=== PATIENT | male | born 1990 ===

== ENCOUNTER 2018-07-16 09:55 | Emergency (ER) | payer OTHER ==
[2018-07-16 09:59] VITALS: BMI 30.9
[2018-07-16 10:00] VITALS: BP 122/78; RESP 17; TEMP 98.5; O2SAT 98
--- NOTE | 2018-07-16 11:04 | ED PDOC ---
HPI: General Adult Time Seen by Provider: 07/16/18 10:16 Chief Complaint (Nursing): Medical Clearance Chief Complaint (Provider): difficulty sleeping History Per: Patient History/Exam Limitations: language barrier (Residential Real Estate Assistant #[id number]) Onset/Duration Of Symptoms: Days (x3) Current Symptoms Are (Timing): Still Present Additional Complaint(s): Colin Campos is a 27 year old male, with a past medical history of anxiety, depression and schizophrenia, who presents to the emergency department complaining of being unable to sleep for more than x2 hours for the last x3 nights. Patient takes Risperidone, Benztropine, Alprazolam and without any help. Patient works at a grocery store doing stocking and states he is worried of working with lack of sleep. He denies any hallucinations, depression or other medical complaints. PMD: None provided. Past Medical History Reviewed: Historical Data, Nursing Documentation, Vital Signs Vital Signs: Last Vital Signs Temp 98.5 F 07/16/18 09:59 Pulse 103 H 07/16/18 09:59 Resp 17 07/16/18 09:59 BP 122/78 07/16/18 09:59 Pulse Ox 98 07/16/18 09:59 - Medical History PMH: Anxiety, Bipolar Disorder, Depression, Schizophrenia Denies: Diabetes, Hepatitis, HIV, HTN, Seizures, Sexually Transmitted Disease - Surgical History Other surgeries: HEAD CYST REMOVAL - Family History Family History: States: Unknown Family Hx - Social History Current smoker - smoking cessation education provided: No Alcohol: None Drugs: Denies - Immunization History Hx Tetanus Toxoid Vaccination: No Hx Influenza Vaccination: No Hx Pneumococcal Vaccination: No - Home Medications Home Medications: Ambulatory Orders Medication Instructions Recorded ALPRAZolam [Xanax] 0.25 mg PO Q6 PRN #15 tab 07/12/18 Benztropine [Cogentin] 07/12/18 DiphenhydrAMINE [Benadryl] 25 mg PO Q6 PRN #30 cap 07/12/18 risperiDONE 07/12/18 - Allergies Allergies/Adverse Reactions: Allergies Allergy/AdvReac Type Severity Reaction Status Date / Time No Known Allergies Allergy Unverified 07/16/18 10:25 Review of Systems ROS Statement: Except As Marked, All Systems Reviewed And Found Negative Psych: Negative for: Depression, Other (hallucinations) Physical Exam - Reviewed Nursing Documentation Reviewed: Yes Vital Signs Reviewed: Yes - Physical Exam Appears: Positive for: No Acute Distress Head Exam: Positive for: ATRAUMATIC, NORMAL INSPECTION, NORMOCEPHALIC Skin: Positive for: Normal Color, Warm, Dry Eye Exam: Positive for: Normal appearance, EOMI, PERRL Neck: Positive for: Normal, Painless ROM Cardiovascular/Chest: Positive for: Regular Rate, Rhythm. Negative for: Murmur Respiratory: Positive for: Normal Breath Sounds. Negative for: Respiratory Distress Gastrointestinal/Abdominal: Positive for: Normal Exam, Soft. Negative for: Tenderness Back: Positive for: Normal Inspection Extremity: Positive for: Normal ROM (upper and lower extremities). Negative for: Deformity Neurologic/Psych: Positive for: Alert, Oriented. Negative for: Motor/Sensory Deficits - ECG O2 Sat by Pulse Oximetry: 98 (RA) Pulse Ox Interpretation: Normal Medical Decision Making Medical Decision Making: Time: 10:16 Initial Impression: Patient has scheduled appointment with psychiatrist in July 24. Will call today to get an earlier appointment for possible med adjustment and addition of sleeping aid. Initial Plan: 10:40 Vitals are within normal limits. Patient is medically stable for discharge home. Patient advised to take OTC sleep aid and follow up with scheduled appointment with psychiatrist. Scribe Attestation: Documented by Sanket Corbin, acting as a scribe for Tabitha Phan MD Provider Scribe Attestation: All medical record entries made by the Scribe were at my direction and personally dictated by me. I have reviewed the chart and agree that the record accurately reflects my personal performance of the history, physical exam, medical decision making, and the department course for this patient. I have also personally directed, reviewed, and agree with the discharge instructions and disposition. Disposition - Clinical Impression Clinical Impression: Anxiety, Insomnia - Disposition Disposition: Routine/Home Disposition Time: 10:40 Condition: STABLE Additional Instructions: Follow up with psychiatrist/mental health clinic today or tomorrow. Do not drive or perform dangerous activities if you have been unable to sleep as drowsiness will cause you to be impaired. Instructions: Anxiety, Adult (DC), Insomnia (DC), General (DC), Tips for Getting Better Sleep Forms: [employer] (Uruguayan), [employer] (Khmer) Print Language: ERITREAN
[2018-07-16 11:31] VITALS: PULSE 94
== END 2018-07-16 11:31 | disposition home or self-care (01) ==
LOC: H.ER 09:55
DX: F41.9 Anxiety disorder, unspecified (principal); G47.00 Insomnia, unspecified; F20.9 Schizophrenia, unspecified; F31.9 Bipolar disorder, unspecified

== ENCOUNTER 2018-07-21 00:24 | Inpatient (IN) | payer OTHER ==
[2018-07-21 00:52] VITALS: BMI 33.9
--- NOTE | 2018-07-21 02:28 | ED PDOC ---
HPI: Psych/Substance Abuse Time Seen by Provider: 07/21/18 01:15 Chief Complaint (Nursing): Anxiety Chief Complaint (Provider): Anxiety History Per: Busperson (Carlito #[id number]) History/Exam Limitations: language barrier (greek) Onset/Duration Of Symptoms: Days (x5) Current Symptoms Are (Timing): Still Present Suicide/Self Injury Attempted (Context): None Additional Complaint(s): 27 year old male with pmHx of anxiety, bipolar disorder, and schizophrenia, arrives to the emergency department for an evaluation of dizziness and difficulty sleeping due to increased anxiety for the past 5 days. Patient has been taking risperidone and benztroprine as prescribed, however, does not feel any alleviation. Otherwise, he denies fever, chills, vomiting, suicidal or homicidal ideation. PCP: Dr.Tania Faustino Love Past Medical History Reviewed: Historical Data, Nursing Documentation, Vital Signs Vital Signs: Last Vital Signs Temp 98.6 F 07/21/18 00:52 Pulse 102 H 07/21/18 00:52 Resp 18 07/21/18 00:52 BP 126/85 07/21/18 00:52 Pulse Ox 97 07/21/18 00:52 - Medical History PMH: Anxiety, Bipolar Disorder, Depression, Schizophrenia Denies: Diabetes, Hepatitis, HIV, HTN, Seizures, Sexually Transmitted Disease - Family History Family History: States: Unknown Family Hx - Immunization History Hx Tetanus Toxoid Vaccination: No Hx Influenza Vaccination: No Hx Pneumococcal Vaccination: No - Home Medications Home Medications: Ambulatory Orders Medication Instructions Recorded Benztropine Mesylate 1 mg PO HS 07/21/18 Patient Own Control 25 mg PO Q6 07/21/18 Risperidone [Risperdal] 2 mg PO HS 07/21/18 - Allergies Allergies/Adverse Reactions: Allergies Allergy/AdvReac Type Severity Reaction Status Date / Time No Known Allergies Allergy Unverified 07/21/18 00:51 Review of Systems ROS Statement: Except As Marked, All Systems Reviewed And Found Negative Constitutional: Negative for: Fever, Chills Gastrointestinal: Negative for: Vomiting Neurological: Positive for: Dizziness Psych: Positive for: Anxiety. Negative for: Suicidal ideation (or homicidal ideation) Physical Exam - Reviewed Nursing Documentation Reviewed: Yes Vital Signs Reviewed: Yes - Physical Exam Appears: Positive for: Non-toxic, No Acute Distress Head Exam: Positive for: ATRAUMATIC, NORMAL INSPECTION, NORMOCEPHALIC Skin: Positive for: Normal Color Eye Exam: Positive for: Normal appearance, EOMI, PERRL Cardiovascular/Chest: Positive for: Regular Rate, Rhythm, Chest Non Tender. Negative for: Murmur Respiratory: Positive for: Normal Breath Sounds. Negative for: Wheezing, Respiratory Distress Neurologic/Psych: Positive for: Alert, Oriented. Negative for: Motor/Sensory Deficits, Aphasia - Laboratory Results Result Diagrams: 07/21/18 02:38 07/21/18 02:38 - ECG O2 Sat by Pulse Oximetry: 97 (RA) Pulse Ox Interpretation: Normal Medical Decision Making Medical Decision Making: Time: 2009 Initial Plan: * Labs * Crisis evaluation Time: 242 --Evaluated by abrasive worker who additionally reviewed past charts. Patient's presentation appears similar to previous psych break at [facility]. Will require admission as per Dr. Morel. Time: 329 --Patient is medically optimized for admission. ------- Scribe Attestation: Documented by Lanetet Castillo, acting as a scribe for Tabitha Phan MD. Provider Scribe Attestation: All medical record entries made by the Scribe were at my direction and personally dictated by me. I have reviewed the chart and agree that the record accurately reflects my personal performance of the history, physical exam, medical decision making, and the department course for this patient. I have also personally directed, reviewed, and agree with the discharge instructions and disposition. Disposition - Clinical Impression Clinical Impression: Schizoaffective disorder - Disposition Disposition Time: 03:30 Condition: STABLE
[2018-07-21 03:11] LABS: BASO % 0.4 % (0.0-2.0); EOS # 0.1 K/uL (0.0-0.7); EOS % 1.4 % (0.0-4.0); LYMPH % 26.8 % (20.0-40.0); MEAN CELL VOLUME 88.3 fl (80.0-94.0); MEAN CORPUSCULAR HEMOGLOBIN 30.3 pg (27.0-31.0); MEAN CORPUSCULAR HGB CONC 34.3 g/dL (33.0-37.0); MEAN PLATELET VOLUME 9.1 fl (7.2-11.7); MONO # 0.5 K/uL (0.0-0.8); MONO % 6.2 % (0.0-10.0); NEUT # 4.9 K/uL (1.8-7.0); NEUT % 65.2 % (50.0-75.0); NRBC % 0.1 % (0.0-0.0); RBC 4.96 Mil/uL (4.40-5.90); RED CELL DISTRIBUTION WIDTH 12.7 % (11.5-14.5); WHITE BLOOD COUNT 7.5 K/uL (4.8-10.8)
[2018-07-21 03:19] LABS: BLOOD UREA NITROGEN 17 mg/dl (9-20); CALCIUM 9.2 mg/dL (8.4-10.2); GFR NON-AFRICAN AMERICAN > 60
[2018-07-21] MEDS ORDERED: DiphenhydrAMINE 50 mg/ml Inj IM PRN (05:14)
[2018-07-21] MEDS ORDERED: Magnesium Hydroxide Susp 30 ml UD PO PRN (05:14)
[2018-07-21] MEDS ORDERED: Alum-Mag Hydrox-Simethicone Susp (30 mL) PO PRN (05:14)
--- NOTE | 2018-07-21 05:25 | PCM.BM ---
<Ethan Reeves - Last Filed: 07/21/18 05:24> Treatment Plan Problems - Problems identified on initial assessmt Anxiety Date Initiated: 07/21/18 Time Initiated: 05:24 Assessment reference: NA Status: Active Altered Sleep Patterns Date Initiated: 07/21/18 Time Initiated: 05:24 Assessment reference: NA Status: Active Panic Attacks Date Initiated: 07/21/18 Time Initiated: 05:24 Assessment reference: NA Status: Active Treatment assets and liabiliti Patient Assests: cooperative, ADL independent, physically healthy, good support system, negotiates basic needs, cognitively intact Patient Liabilities: financial problems, other (Recent loss) - Milieu Protocol Maintain good personal hygiene: every shift Encourage regular showers, every shift Remind patient to perform daily oral care, every shift Assist patient to perform ADL's Maintain personal safety: daily Educate patient to report safety concerns to staff, daily Monitor environment for contraband/sharps Medication safety: Monitor for expected outcome, potential side effects: daily, Assess barriers to learning: daily, Assess readiness for medication education: daily <Sumit Ying - Last Filed: 07/22/18 18:48> Family Contact Family involvement: Family/SO is involved Family contact: Patient agrees to contact - Goals for Treatment Patient goals for treatment: Pt reported that he would like to be placed on medications to help him sleep. Discharge/Continuing Care - Education Needs Education Needs: Patient Medication, Patient Diagnosis/Disease Process, Patient Coping Skills, Patient Community resources, Patient Aftercare Safety Plan - Discharge Discharge Criteria: Tolerates medication w/o severe side effects, Free of paranoid thoughts, Free of agitation, Normal sleep pattern, Ability to care for self, Reduction of target symptoms Discharge to:: Home, With Family - Treatment Team Participation Was Patient/Family/SO present at Treatment Team Meeting: Yes <Kelly Marinelli - Last Filed: 07/23/18 11:25> - Diagnosis (1) Schizoaffective disorder Status: Acute Interventions: Medication management, Individual and group therapy, Psychoeducation 07/23/18 11:25 <Apoorva Jerome - Last Filed: 07/23/18 15:11> Discharge/Continuing Care - Treatment Team Participation Patient/Family/SO Statement: 07/23/18 15:11 Patient was invited to tx team this morning to discuss progress on 3NS and tx goals. Pt. presented as suspicious on approach and guarded when discussing psychiatric hx/sxs leading to admission. Pt. reported hx of AH and paranoia (last experienced 5 months ago). Affect incongruent to mood (smiling inappropriately). Pt. reported vague sxs of depression and anxiety and identified poor sleep as primary stressors contributing to acute onset of sxs. Pt. presented with c/o sleep disturbances (3 hrs/night for past 6 days). Pt. perseverating on possibility that lack of sleep will lead to his and required significant reassurance. Pt. denied AH/VH. Pt. denied SI/HI and was able to contract for safety. Focus/Insight limited. Pt superficially motivated for tx. Pt requested increase in medications. Psychoeducation regarding recommended medication regimen provided. Pt receptive to feedback.
[2018-07-21 06:20] LABS: BENZODIAZEPINES, UR NEGATIVE (NEGATIVE)
[2018-07-21 06:25] LABS: BARBITURATES, UR NEGATIVE (NEGATIVE); OPIATES, UR NEGATIVE (NEGATIVE); PHENCYCLIDINE, UR NEGATIVE (NEGATIVE)
--- NOTE | 2018-07-21 10:28 | RAD ---
Date of service: 07/21/2018 HISTORY: possible admission COMPARISON: No prior. FINDINGS: LUNGS: No active pulmonary disease. PLEURA: No significant pleural effusion identified, no pneumothorax apparent. CARDIOVASCULAR: No aortic atherosclerotic calcification present. Normal cardiac size. No pulmonary vascular congestion. OSSEOUS STRUCTURES: No significant abnormalities. VISUALIZED UPPER ABDOMEN: Normal. OTHER FINDINGS: Partially imaged right-sided ventriculoperitoneal shunt catheter. IMPRESSION: No active disease.
--- NOTE | 2018-07-21 13:00 | PCM.PSYCH ---
Initial Psychiatric Evaluation - Initial Psychiatric Evaluation Chief Complaint (in patient's own words): I could not sleep History of Present Illness and Precipitating Events: pt is 27 ys old male with previous diagnosis of psychotic disorder, presented to ER due to decreased sleep, and increased anxiety pt has been hospitalized at [facility] in 2018, for disorganized behaviour diaagnosed with brief psychotic episode, placed on risperidone , pt has not been lately compliant with medications or follow up reported that for past few weeks had difficulty sleeping with early insomnia, feeling anxious all the time, pt presenting with concrete thought process and at times affect is inappropriate to thought content, stating that 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, removed 7 years ago and he also checked into the hospital to get CT scan to check if he is alright pt denied command hallucinations denied any current suicidal or homicidal ideation Current Medications: Active Medications Generic Name Dose Route Start Last Admin Trade Name Freq PRN Reason Stop Dose Admin Acetaminophen 650 mg 07/21/18 05:14 Tylenol 325mg Tab PO Q4 PRN Pain, moderate (4-7) Al Hydrox/Mg Hydrox/Simethicone 30 ml 07/21/18 05:14 Maalox Plus 30 Ml PO Q4 PRN Dyspepsia Benztropine Mesylate 1 mg 07/21/18 22:00 Cogentin PO HS IVETTE Diphenhydramine HCl 50 mg 07/21/18 05:14 Benadryl IM Q6 PRN Extrapyramidal S/S Unable PO Diphenhydramine HCl 50 mg 07/21/18 05:14 Benadryl PO Q6 PRN Extrapyramidal Symptoms Diphenhydramine HCl 50 mg 07/21/18 05:26 Benadryl PO HS PRN Sleep Haloperidol 5 mg 07/21/18 05:14 Haldol PO Q4 PRN Agitation Haloperidol Lactate 5 mg 07/21/18 05:14 Haldol IM Q4 PRN Agitation, Unable to Take PO Lorazepam 2 mg 07/21/18 05:14 Ativan IM Q4 PRN Anxiety/Agitation,Unable PO Lorazepam 1 mg 07/21/18 05:14 Ativan PO Q8 PRN Anxiety/Agitation Magnesium Hydroxide 30 ml 07/21/18 05:14 Milk Of Magnesia PO HS PRN Constipation Risperidone 1 mg 07/21/18 22:00 Risperdal Tab PO HS IVETTE Trazodone HCl 50 mg 07/21/18 22:00 Desyrel PO HS [facility] Past Psychiatric History - Past Psychiatric History History of ETOH/Drug Use: non reported History of Family Illness: hx of bipolar Pertinent Medical Hx (Current Medical&Sleep Prob, Allergies): Allergies Allergy/AdvReac Type Severity Reaction Status Date / Time No Known Allergies Allergy Unverified 07/21/18 00:51 Benztropine Mesylate 1 mg PO HS 07/21/18 Patient Own Control 25 mg PO Q6 07/21/18 Risperidone [Risperdal] 2 mg PO HS 07/21/18 Mental Status Examination - Personal Presentation Personal Presentation: Looks stated age - Affect Affect: Constricted, Blunted - Motor Activity Motor Activity: Psychomotor Agitation - Reliability in Providing Information Reliability in Providing Information: Poor, due to alteration in thoughts - Speech Speech: Tangential - Mood Mood: Depressed, Anxious - Formal Thought Process Formal Thought Process: Paranoia, Circumstantial Additional comments: thought blocking - Obsessions/Compulsions Obsessions: No Compulsions: No - Cognitive Functions Orientation: Person, Place Sensorium: Alert Attention/Concentration: Easily distracted Abstract Thinking: [place] Judgement: Imparied, as evidence by: Lack of insight into illness - Risk Risk: Diminished functioning - Strength & Assets Inventory Strength & Assets Inventory: Life experience - Limitations Additional comments: poor compliance DSM 5 DX - DSM 5 DSM 5 Diagnosis: psychotic disorder rule out depression with psychosis rule out schizophrenia disorganized type - Recommended/Plan of Treatment Treatment Recommendations and Plan of Treatment: pt will be started on risperidone 1mg qhs , / increase gradually cogentin 1mg qhs trazodone 50mg qhs collateral information to be obtained from family
--- NOTE | 2018-07-21 14:44 | CP.PCM.CON ---
History of Present Illness - History of Present Illness History of Present Illness: Reason for Consult: Per hospital protocol HPI: 27 year old male PMH psychotic disorder admitted for disorganized behavior. No other complaints, HD stable, NAD. ROS: Per HPI, all other systems reviewed and neg Past Patient History - Past Social History Smoking Status: Never Smoked - CARDIAC Hx Hypertension: No - PULMONARY Hx Tuberculosis: No - NEUROLOGICAL Hx Seizures: No - HEMATOLOGICAL/ONCOLOGICAL Hx Human Immunodeficiency Virus (HIV): No - GASTROINTESTINAL Hx Gastritis: Yes - GENITOURINARY/GYNECOLOGICAL Hx Sexually Transmitted Disorders: No - PSYCHIATRIC Hx Anxiety: Yes Hx Bipolar Disorder: Yes Hx Depression: Yes Hx Substance Use: No - SURGICAL HISTORY Hx Surgeries: Yes Other/Comment: head cyst surgery - ANESTHESIA Hx Anesthesia: Yes Hx Anesthesia Reactions: No Meds Allergies/Adverse Reactions: Allergies Allergy/AdvReac Type Severity Reaction Status Date / Time No Known Allergies Allergy Unverified 07/21/18 00:51 - Medications Medications: Current Medications Acetaminophen (Tylenol 325mg Tab) 650 mg PO Q4 PRN PRN Reason: Pain, moderate (4-7) Al Hydrox/Mg Hydrox/Simethicone (Maalox Plus 30 Ml) 30 ml PO Q4 PRN PRN Reason: Dyspepsia Benztropine Mesylate (Cogentin) 1 mg PO HS IVETTE Diphenhydramine HCl (Benadryl) 50 mg IM Q6 PRN PRN Reason: Extrapyramidal S/S Unable PO Diphenhydramine HCl (Benadryl) 50 mg PO Q6 PRN PRN Reason: Extrapyramidal Symptoms Diphenhydramine HCl (Benadryl) 50 mg PO HS PRN PRN Reason: Sleep Haloperidol (Haldol) 5 mg PO Q4 PRN PRN Reason: Agitation Haloperidol Lactate (Haldol) 5 mg IM Q4 PRN PRN Reason: Agitation, Unable to Take PO Lorazepam (Ativan) 2 mg IM Q4 PRN PRN Reason: Anxiety/Agitation,Unable PO Lorazepam (Ativan) 1 mg PO Q8 PRN PRN Reason: Anxiety/Agitation Last Admin: 07/21/18 13:41 Dose: 1 mg Magnesium Hydroxide (Milk Of Magnesia) 30 ml PO HS PRN PRN Reason: Constipation Risperidone (Risperdal Tab) 1 mg PO HS IVETTE Trazodone HCl (Desyrel) 50 mg PO HS IVETTE Physical Exam - Constitutional Additional comments: GEN: WDWN, alert, cooperative HEENT: NCAT, PERRL, EOMI HEART: RRR, +S1S2, NO MRG LUNG: CTAB, NO WRR ABD: soft, NT, ND, No HSM, No masses EXT: normal pedal pulses NEURO: awake, alert SKIN: warm, dry PSYCH: normal mood, normal affect Results - Vital Signs Recent Vital Signs: Last Vital Signs Temp 98.1 F 07/21/18 06:00 Pulse 85 07/21/18 06:00 Resp 18 07/21/18 06:00 BP 129/78 07/21/18 06:00 Pulse Ox 99 07/21/18 04:40 - Labs Result Diagrams: 07/21/18 02:38 07/21/18 02:38 Labs: Laboratory Results - last 24 hr 07/21/18 07/21/18 07/21/18 02:38 02:38 04:48 WBC 7.5 RBC 4.96 Hgb 15.0 Hct 43.7 MCV 88.3 MCH 30.3 MCHC 34.3 RDW 12.7 Plt Count 259 MPV 9.1 Neut % (Auto) 65.2 Lymph % (Auto) 26.8 [place] % (Auto) 6.2 Eos % (Auto) 1.4 Baso % (Auto) 0.4 Neut # (Auto) 4.9 Lymph # (Auto) 2.0 [place] # (Auto) 0.5 Eos # (Auto) 0.1 Baso # (Auto) 0.0 Sodium 140 Potassium 3.4 L Chloride 105 Carbon Dioxide 23 Anion Gap 15 BUN 17 Creatinine 0.8 Est GFR ( Amer) > 60 Est GFR (Non-Af Amer) > 60 Random Glucose 118 H Calcium 9.2 Triglycerides Cholesterol LDL Cholesterol Direct HDL Cholesterol Thyroxine (T4) TSH 3rd Generation Urine Opiates Screen Negative Urine Methadone Screen Negative Ur Barbiturates Screen Negative Ur Phencyclidine Scrn Negative Ur Amphetamines Screen Negative U Benzodiazepines Scrn Negative U Oth Cocaine Metabols Negative U Cannabinoids Screen Negative 07/21/18 06:18 WBC RBC Hgb Hct MCV MCH MCHC RDW Plt Count MPV Neut % (Auto) Lymph % (Auto) [place] % (Auto) Eos % (Auto) Baso % (Auto) Neut # (Auto) Lymph # (Auto) [place] # (Auto) Eos # (Auto) Baso # (Auto) Sodium Potassium Chloride Carbon Dioxide Anion Gap BUN Creatinine Est GFR ( Amer) Est GFR (Non-Af Amer) Random Glucose Calcium Triglycerides 152 H Cholesterol 160 LDL Cholesterol Direct 104 HDL Cholesterol 34 Thyroxine (T4) 9.72 TSH 3rd Generation 3.12 Urine Opiates Screen Urine Methadone Screen Ur Barbiturates Screen Ur Phencyclidine Scrn Ur Amphetamines Screen U Benzodiazepines Scrn U Oth Cocaine Metabols U Cannabinoids Screen Assessment & Plan - Assessment and Plan (Free Text) Plan: 27 year old male PMH psychotic disorder admitted for disorganized behavior. No other complaints, HD stable, NAD. Psychotic Disorder management per psych
--- NOTE | 2018-07-22 10:06 | CARD ---
APPROVED REPORT Date of service: 07/21/2018 EKG Measurement Heart [id number] <Conclusion> Normal sinus rhythm Early reporlarization pattern; a normal variant Normal ECG
--- NOTE | 2018-07-22 10:09 | PCM.PYCHPN ---
Psychiatric Progress Note - Psychiatric Progress Note Patient seen today, length of contact: pt evaluated discussed with team chart reviewed Patient Chief Complaint: I still have hard time sleeping Problems Identified/Issues Discussed: pt on evaluation. presenting with concrete thought process, blunted affect, reported poor sleep, yet observed by staff to have eight hours of sleep, pt at times presenting with thought blocking, appears internally preoccupied , he denied command hallucinations, denied suicidal or homicidal ideation, has limited insight into illness DSM 5 Symptoms Update: schizoaffective disorder Medication Change: Yes (increase risperidone and trazodone ) Medical Record Reviewed: Yes Mental Status Examination - Cognitive Function Orientation: Person, Place Attention: WNL Concentration: Poor Fund of Knowledge: Poor Decription of patient's judgement and insights: poor insight and judgment - Mood Mood: Anxious - Affect Affect: Blunted - Speech Speech: Soft - Formal Thought Process Formal Thought Process: Paranoia, Circumstantial Psychotic Thoughts and Behaviors: pt appears internally preoccupied - Suicidal Ideation Suicidal Ideation: No - Homicidal Ideation Homicidal Ideation: No Goal/Treatment Plan - Goal/Treatment Plan Need for Continued Stay: Severe depression anxiety, Discharge may exacerbated symptoms Progress Toward Problem(s) and Goals/Treatment Plan: increase risperidone 2mg qhs , / cogentin 1mg qhs trazodone 100mg qhs collateral information to be obtained from family
--- NOTE | 2018-07-23 11:33 | PCM.PYCHPN ---
Psychiatric Progress Note - Psychiatric Progress Note Patient seen today, length of contact: Pt evaluated, case discussed w/ team, chart reviewed Patient Chief Complaint: "I can't sleep." Problems Identified/Issues Discussed: Patient continues to report sleep disturbances and is fearful that he will from not sleeping. He is guarded w/ inappropriately happy affect at times. He denies acute AH/VH, but seems internally preoccupied, has poor eye contact and stares in different directions at times. He has thought blocking. We discussed continued titration of Risperdal. Medication Change: Yes (Increase Risperdal) Medical Record Reviewed: Yes Consults ordered or reviewed: Medicine consult Mental Status Examination - Cognitive Function Orientation: Person, Place, Situation, Time Memory: Intact Attention: WNL Fund of Knowledge: WNL Decription of patient's judgement and insights: Poor I/J - Mood Mood: Depressed, Anxious - Affect Affect: Constricted, Other - Speech Speech: Soft - Formal Thought Process Formal Thought Process: Paranoia, Circumstantial, Other (Thought blocking) Psychotic Thoughts and Behaviors: Denies acute AH/VH; but seems guarded and paranoid - Suicidal Ideation Suicidal Ideation: No - Homicidal Ideation Homicidal Ideation: No Goal/Treatment Plan - Goal/Treatment Plan Need for Continued Stay: Severe depression anxiety, Discharge may exacerbated symptoms Progress Toward Problem(s) and Goals/Treatment Plan: Schizoaffective Disorder -Increase Risperdal -Continue Cogentin and Trazodone -Individual and group therapy -Medicine consult -Psychoeducation -Disposition planning Estimated Date of D/C: 07/27/18
--- NOTE | 2018-07-24 08:25 | PCM.PYCHPN ---
Psychiatric Progress Note - Psychiatric Progress Note Patient seen today, length of contact: Pt evaluated, case discussed w/ team, chart reviewed Patient Chief Complaint: "I can't sleep." Problems Identified/Issues Discussed: Patient continues to report sleep disturbances and continues to be preoccupied that he will from poor sleep. He denies acute AH/VH/SI/HI/paranoia, but patient seems guarded and internally preoccupied at times. No adverse effects to medications reported. Medication Change: No Medical Record Reviewed: Yes Consults ordered or reviewed: Medicine consult Mental Status Examination - Cognitive Function Orientation: Person, Place, Situation, Time Memory: Intact Attention: WNL Fund of Knowledge: [facility] Decription of patient's judgement and insights: Poor I/J - Mood Mood: Anxious - Affect Affect: Constricted - Speech Speech: Soft - Formal Thought Process Formal Thought Process: Paranoia Psychotic Thoughts and Behaviors: Denies acute AH/VH; but seems guarded and paranoid - Suicidal Ideation Suicidal Ideation: No - Homicidal Ideation Homicidal Ideation: No Goal/Treatment Plan - Goal/Treatment Plan Need for Continued Stay: Severe depression anxiety, Discharge may exacerbated symptoms Progress Toward Problem(s) and Goals/Treatment Plan: Schizoaffective Disorder -Continue Risperdal -Continue Cogentin and Trazodone -Individual and group therapy -Medicine consult -Psychoeducation -Disposition planning Estimated Date of D/C: 07/27/18
--- NOTE | 2018-07-25 09:51 | PCM.PYCHPN ---
Psychiatric Progress Note - Psychiatric Progress Note Patient seen today, length of contact: Pt evaluated, case discussed w/ team, chart reviewed Patient Chief Complaint: "I can't sleep." Problems Identified/Issues Discussed: Patient continues to report sleep disturbances and continues to be preoccupied that he will from poor sleep. He denies acute AH/VH/SI/HI/paranoia, but continues to guarded. Patient is less bizarre and more engaged in the community. We discussed continued titration of Risperdal and Trazodone. Patient is requesting to be discharged on Monday. No adverse effects to medications currently reported. Medication Change: Yes (Increase Trazodone and Risperdal) Medical Record Reviewed: Yes Consults ordered or reviewed: Medicine consult Mental Status Examination - Cognitive Function Orientation: Person, Place, Situation, Time Memory: Intact Attention: WNL Concentration: WNL Association: WNL Fund of Knowledge: [facility] Decription of patient's judgement and insights: Poor I/J - Mood Mood: Anxious - Affect Affect: Constricted - Speech Speech: Soft - Formal Thought Process Formal Thought Process: Paranoia Psychotic Thoughts and Behaviors: Denies acute AH/VH; but seems guarded and paranoid - Suicidal Ideation Suicidal Ideation: No - Homicidal Ideation Homicidal Ideation: No Goal/Treatment Plan - Goal/Treatment Plan Need for Continued Stay: Severe depression anxiety, Discharge may exacerbated symptoms Progress Toward Problem(s) and Goals/Treatment Plan: Schizoaffective Disorder -Increase Risperdal and Trazodone -Continue Cogentin -Individual and group therapy -Medicine consult -Psychoeducation -Disposition planning Estimated Date of D/C: 07/27/18
[2018-07-25 10:45] VITALS: O2SAT 97
--- NOTE | 2018-07-26 09:26 | PCM.PYCHPN ---
Psychiatric Progress Note - Psychiatric Progress Note Patient seen today, length of contact: Pt evaluated, case discussed w/ team, chart reviewed Patient Chief Complaint: "I can't sleep." Problems Identified/Issues Discussed: Patient is improving clinically. He continues to have subjective complaints that he can not sleep despite being observed by staff to sleep >6-7 hrs/night. He is less bizarre and more appropriately engaged with others. He denies acute AH/VH/SI/HI. No adverse effects to medications reported. Medication Change: No Medical Record Reviewed: Yes Consults ordered or reviewed: Medicine consult Mental Status Examination - Cognitive Function Orientation: Person, Place, Situation, Time Memory: Intact Attention: WNL Concentration: WNL Association: WNL Fund of Knowledge: [facility] Decription of patient's judgement and insights: Improving I/J - Mood Mood: Anxious - Affect Affect: Broad - Speech Speech: Soft - Formal Thought Process Formal Thought Process: No Impairment Psychotic Thoughts and Behaviors: Denies acute AH/VH; less guarded - Suicidal Ideation Suicidal Ideation: No - Homicidal Ideation Homicidal Ideation: No Goal/Treatment Plan - Goal/Treatment Plan Need for Continued Stay: Discharge may exacerbated symptoms Progress Toward Problem(s) and Goals/Treatment Plan: Schizoaffective Disorder -Continue Risperdal and Trazodone -Continue Cogentin -Individual and group therapy -Medicine consult -Psychoeducation -Disposition planning- likely discharge tomorrow as patient is improving clinically Estimated Date of D/C: 07/27/18
[2018-07-27 06:02] VITALS: BP 125/78; PULSE 90; RESP 18; TEMP 98.1
--- NOTE | 2018-07-27 08:28 | PCM.PYCHDC ---
Mental Status Examination - Mental Status Examination Orientation: Person, Place, Situation, Time Memory: Intact Mood: Neutral Affect: Broad Speech: Appropriate Attention: WNL Concentration: WNL Association: WNL Fund of Knowledge: WNL Formal Thought Process: No Impairment Description of patient's judgement and insight: Fair I/J Psychotic Thoughts and Behaviors: Denies acute AH/VH/paranoia/delusions Suicidal Ideation: No Current Homicidal Ideation?: No Discharge Summary - Discharge Note Reason for Hospitalization: As per initial HPI note: pt is 27 ys old male with previous diagnosis of psychotic disorder, presented to ER due to decreased sleep, and increased anxiety pt has been hospitalized at [facility] in 2018, for disorganized behaviour diaagnosed with brief psychotic episode, placed on risperidone , pt has not been lately compliant with medications or follow up reported that for past few weeks had difficulty sleeping with early insomnia, feeling anxious all the time, pt presenting with concrete thought process and at times affect is inappropriate to thought content, 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 Reason for request. 2. Findings. 3. Follow-up Consultations: Medicine consult Summary of Hospital Course include:: 1. Description of specific treatment plan utilized for patients during their course of treatmen. 2. Summarize the time- course for resolution of acute symptoms and/or regressed behaviors. 3. Describe issues identified and worked on during hospitalization. 4. Describe medication utilized. 5. Describe medical problems identified and treated. 6. Reassessment of suicide risk Summary of Hospital Course: Patient admitted to the psychiatry unit. Individual and group therapy provided. Psychoeducation provided on the importance of compliance with treatment and medications. Patient was stabilized on Risperdal, Trazodone and Cogentin. He has improved sleep and denies acute psychotic symptoms. Patient is psychiatrically stable for discharge at this time. - Diagnosis (1) Schizoaffective disorder Current Visit: Yes Status: Chronic - Final Diagnosis (DSM 5) Condition upon Discharge: STABLE DSM 5: Schizoaffective Disorder Disposition: HOME/ ROUTINE Follow-up Treatment Plan: Schizoaffective Disorder -Continue current medication -Patient psychiatrically stable for discharge with outpatient follow-up Prescriptions/Medication Reconciliation: Benztropine [Cogentin] 1 mg PO HS #30 tab risperiDONE [RisperDAL Tab] 4 mg PO HS #60 tab Trazodone HCl 150 mg PO HS #30 tablet - Smoking Cessation Smoking Cessation Medication prescribed: No Reason for not providing: Not indicated - Antipsychotic Medications Pt discharged on 2 or more routine antipsychotic medications: No
== END 2018-07-27 09:45 | disposition home or self-care (01) | DRG 885 ==
LOC: H.ER 00:24 → H.ERHOLD 02:45 → H.STEP 05:09
PROVIDERS: ADMIT Psychiatry & Neurology Psychiatry; ATTEND Psychiatry & Neurology Psychiatry
PROC: GZHZZZZ Group Psychotherapy (ICD-10-PCS; principal; 2018-07-21)
DX: F25.9 Schizoaffective disorder, unspecified (principal); K29.70 Gastritis, unspecified, without bleeding; Z91.14 Patient's other noncompliance with medication regimen; Z91.19 Patient's noncompliance with other medical treatment and regimen

== ENCOUNTER 2018-07-29 18:23 | Emergency (ER) | payer OTHER ==
[2018-07-29 18:24] VITALS: BMI 33.9
[2018-07-29] MEDS ORDERED: Sodium Chloride 0.9% 1,000 ML IV STA (19:23)
--- NOTE | 2018-07-29 20:03 | ED PDOC ---
HPI: SOB/CHF/COPD Time Seen by Provider: 07/29/18 19:07 Chief Complaint (Nursing): Shortness Of Breath History Per: Patient, Chief Telephone Operator (Voyce: [id number], [place]an) Onset/Duration Of Symptoms: Hrs Current Symptoms Are (Timing): Still Present Additional Complaint(s): 27 year old with psychiatric disease presenting with shakiness, "Anxiety". Patient states that 2 hours prior to arrival he felt hot, sweaty, had tightness in his chest, difficulty breathing, and a "choking" sensation. States he only took his regular psych medications today and no more, denies taking drugs or drinking alcohol. States no long plane or car ride, immobilization, surgery. No fevers, cough. States he feels like this is related to anxiety. Of note, patient was discharged from [facility] today. - Risk Factors PE Risk Factors: Neg: Extremity Immobilization/Fx, Recent Major Surgery, Recent Hospitalization, Active Cancer, Previous DVT, Previous PE, CHF, Venous Stasis, Recent Major Trauma Past Medical History Reviewed: Historical Data, Nursing Documentation, Vital Signs Vital Signs: Last Vital Signs Temp 98.9 F 07/29/18 18:39 Pulse 122 H 07/29/18 18:39 Resp 20 07/29/18 18:39 BP 141/85 07/29/18 18:39 Pulse Ox 98 07/29/18 19:01 - Medical History PMH: Anxiety, Bipolar Disorder, Depression, Gastritis, Schizophrenia Denies: Diabetes, Hepatitis, HIV, HTN, Seizures, Sexually Transmitted Disease - Family History Family History: States: Unknown Family Hx - Immunization History Hx Tetanus Toxoid Vaccination: No Hx Influenza Vaccination: No Hx Pneumococcal Vaccination: No - Home Medications Home Medications: Ambulatory Orders Medication Instructions Recorded Benztropine [Cogentin] 1 mg PO HS #30 tab 07/26/18 Trazodone HCl 150 mg PO HS #30 tablet 07/26/18 risperiDONE [RisperDAL Tab] 4 mg PO HS #60 tab 07/26/18 QUEtiapine [SEROquel] 50 mg PO HS #3 tab 07/29/18 - Allergies Allergies/Adverse Reactions: Allergies Allergy/AdvReac Type Severity Reaction Status Date / Time No Known Allergies Allergy Unverified 07/21/18 00:51 Physical Exam - Reviewed Nursing Documentation Reviewed: Yes Vital Signs Reviewed: Yes - Physical Exam Appears: Positive for: Uncomfortable. Negative for: Well (Trembling) Head Exam: Positive for: ATRAUMATIC, NORMAL INSPECTION, NORMOCEPHALIC Skin: Positive for: Diaphoresis Eye Exam: Positive for: EOMI, Normal appearance, PERRL ENT: Positive for: Normal ENT Inspection Neck: Positive for: Normal, Painless ROM Cardiovascular/Chest: Positive for: Tachycardia Respiratory: Positive for: CNT, Normal Breath Sounds Gastrointestinal/Abdominal: Positive for: Normal Exam, Soft. Negative for: Tenderness Back: Positive for: Normal Inspection Extremity: Positive for: Normal ROM Neurological/Psych: Positive for: Awake, Alert, Oriented, Mood/Affect (Anxious, trembling). Negative for: Motor/Sensory Deficits - Laboratory Results Result Diagrams: 07/29/18 20:11 07/29/18 20:11 - ECG ECG Rhythm: Positive for: Normal QRS, Sinus Tachycardia Rate: 110 O2 Sat by Pulse Oximetry: 98 Pulse Ox Interpretation: Normal Medical Decision Making Medical Decision Makin27 year old with schizophrenia, bipolar disorder, depression, anxiety presenting with possible anxiety attack --Patient diaphroretic, shaking, anxious --Possibly related to anxiety, but will also rule out cardiac/pulmonary disease such as PE --Will treat with fluids and ativan --Will continue to monitor 1000PM --Labs are within normal limits --HR is normal --Patient is feeling much better, asking for food and juice, no longer appears anxious --Well appearing and suitable for outpatient followup at this time Disposition - Clinical Impression Clinical Impression: Anxiety - Patient ED Disposition Is Patient to be Admitted: No - Disposition Referrals: [facility] [Outside] Disposition: Routine/Home Disposition Time: 22:01 Condition: IMPROVED Instructions: Anxiety, Adult (DC) Forms: [employer] [facility] (Estonian) Print Language: [place] ISLAND[place]
[2018-07-29 20:21] LABS: BASO % 0.4 % (0.0-2.0); EOS % 0.3 % (0.0-4.0); HEMOGLOBIN 16.1 g/dL (12.0-18.0); LYMPH # 1.2 K/uL (1.0-4.3); LYMPH % 13.3 % (20.0-40.0); MEAN CELL VOLUME 88.9 fl (80.0-94.0); MEAN CORPUSCULAR HEMOGLOBIN 30.1 pg (27.0-31.0); MEAN CORPUSCULAR HGB CONC 33.8 g/dL (33.0-37.0); MEAN PLATELET VOLUME 9.2 fl (7.2-11.7); MONO # 0.5 K/uL (0.0-0.8); MONO % 5.9 % (0.0-10.0); NEUT # 7.2 K/uL (1.8-7.0); NEUT % 80.1 % (50.0-75.0); RBC 5.34 Mil/uL (4.40-5.90)
[2018-07-29 20:27] LABS: PROTHROMBIN TIME 11.2 Seconds (9.8-13.1)
[2018-07-29 20:30] LABS: PARTIAL THROMBOPLASTIN TIME 32.4 Seconds (25.6-37.1)
[2018-07-29 20:51] LABS: BLOOD UREA NITROGEN 13 mg/dl (9-20); CALCIUM 9.9 mg/dL (8.4-10.2); GFR NON-AFRICAN AMERICAN > 60
[2018-07-29 21:03] LABS: B-TYPE NATRIURETIC PEPTIDE 16.1 pg/ml (0-450)
[2018-07-29 23:58] VITALS: BP 123/91; PULSE 92; RESP 16; TEMP 98; O2SAT 100
--- NOTE | 2018-07-30 08:21 | RAD ---
Date of service: 07/29/2018 HISTORY: tachycardia COMPARISON: Frontal chest radiograph 07/21/2018. FINDINGS: LUNGS: No active pulmonary disease. PLEURA: No significant pleural effusion identified, no pneumothorax apparent. CARDIOVASCULAR: No aortic atherosclerotic calcification present. Normal cardiac size. No pulmonary vascular congestion. OSSEOUS STRUCTURES: No significant abnormalities. VISUALIZED UPPER ABDOMEN: Normal. OTHER FINDINGS: Right-sided presumed ventriculoperitoneal shunt catheter reiterated. IMPRESSION: No interval acute cardiopulmonary disease appreciated.
--- NOTE | 2018-07-30 17:36 | CARD ---
APPROVED REPORT Date of service: 07/29/2018 EKG Measurement Heart [id number] <Conclusion> Sinus tachycardia Otherwise normal ECG
== END 2018-07-29 23:15 | disposition home or self-care (01) ==
LOC: H.ER 18:23
DX: F41.9 Anxiety disorder, unspecified (principal); F31.9 Bipolar disorder, unspecified
CPT/HCPCS: 71045; 80048; 83880; 84484; 85025; 85378; 85610; 85730; 93005; 99283; J2060; J7030

== ENCOUNTER 2018-07-31 10:30 | Emergency (ER) | payer OTHER ==
[2018-07-31 10:40] VITALS: BMI 30.9
[2018-07-31 10:44] VITALS: O2SAT 98
--- NOTE | 2018-07-31 12:47 | ED PDOC ---
HPI: Psych/Substance Abuse Time Seen by Provider: 07/31/18 11:01 Chief Complaint (Nursing): Psychiatric Evaluation History Per: Patient History/Exam Limitations: language barrier (Language line used, ID#[id number]) Current Symptoms Are (Timing): Still Present Suicide/Self Injury Attempted (Context): None Additional Complaint(s): Pt. is a 27 y/o Male with bipolar, schizophrenia who reports to ED with complaints of insomnia. Pt. reports he has not been able to sleep in 3 weeks, difficulty falling asleep and maintaining sleep. Pt. was admitted recently for same complaint, reports he has been taking his medicine daily (seroquel, risperdal). Pt. denies cp, sob, or any other complaints. Past Medical History Vital Signs: Last Vital Signs Temp 98.4 F 07/31/18 10:43 Pulse 102 H 07/31/18 10:43 Resp 20 07/31/18 10:43 BP 122/82 07/31/18 10:43 Pulse Ox 98 07/31/18 10:43 - Medical History PMH: Anxiety, Bipolar Disorder, Depression, Gastritis, Schizophrenia Denies: Diabetes, Hepatitis, HIV, HTN, Seizures, Sexually Transmitted Disease - Family History Family History: States: Unknown Family Hx - Immunization History Hx Tetanus Toxoid Vaccination: No Hx Influenza Vaccination: No Hx Pneumococcal Vaccination: No - Home Medications Home Medications: Ambulatory Orders Medication Instructions Recorded Benztropine [Cogentin] 1 mg PO HS #30 tab 07/26/18 Trazodone HCl 150 mg PO HS #30 tablet 07/26/18 risperiDONE [RisperDAL Tab] 4 mg PO HS #60 tab 07/26/18 QUEtiapine [SEROquel] 50 mg PO HS #3 tab 07/29/18 - Allergies Allergies/Adverse Reactions: Allergies Allergy/AdvReac Type Severity Reaction Status Date / Time No Known Allergies Allergy Unverified 07/21/18 00:51 Review of Systems Constitutional: Negative for: Fever Cardiovascular: Negative for: Chest Pain Respiratory: Negative for: Shortness of Breath Gastrointestinal: Negative for: Abdominal Pain Neurological: Negative for: Headache Psych: Negative for: Suicidal ideation Physical Exam - Reviewed Nursing Documentation Reviewed: Yes Vital Signs Reviewed: Yes - Physical Exam Appears: Positive for: Well Head Exam: Positive for: ATRAUMATIC Skin: Positive for: Normal Color Eye Exam: Positive for: Normal appearance ENT: Positive for: Normal ENT Inspection Neck: Positive for: Normal Cardiovascular/Chest: Positive for: Regular Rate, Rhythm Respiratory: Positive for: Normal Breath Sounds Gastrointestinal/Abdominal: Positive for: Normal Exam - Laboratory Results Result Diagrams: 07/31/18 12:56 07/31/18 12:56 - ECG O2 Sat by Pulse Oximetry: 98 Medical Decision Making Medical Decision Making: Crisis counselor evaluated pt. bedside, admission recommended. Pt. well appearing, cooperative. IV access established, labs/urine sent. Pt. now does not to stay in hospital. Pt. requesting to go home, he denies SI/HI. Crisis and psychiatrist Dr. Parker reports pt. can be discharged and can follow up outpatient this monday08/06/18. Disposition - Clinical Impression Clinical Impression: Insomnia disorder, with other sleep disorder, recurrent - Patient ED Disposition Is Patient to be Admitted: No - Disposition Disposition: Routine/Home Disposition Time: 13:37 Condition: STABLE Instructions: Insomnia Forms: [facility] (Comoran), [employer] [facility] (Cambodian) Print Language: TUNISIAN
[2018-07-31 13:13] LABS: BASO % 0.4 % (0.0-2.0); EOS % 0.6 % (0.0-4.0); LYMPH # 1.7 K/uL (1.0-4.3); LYMPH % 19.7 % (20.0-40.0); MEAN CELL VOLUME 88.3 fl (80.0-94.0); MEAN CORPUSCULAR HEMOGLOBIN 30.4 pg (27.0-31.0); MEAN CORPUSCULAR HGB CONC 34.4 g/dL (33.0-37.0); MEAN PLATELET VOLUME 9.1 fl (7.2-11.7); MONO # 0.5 K/uL (0.0-0.8); MONO % 5.3 % (0.0-10.0); NEUT # 6.3 K/uL (1.8-7.0); RBC 5.26 Mil/uL (4.40-5.90); RED CELL DISTRIBUTION WIDTH 13.2 % (11.5-14.5); WHITE BLOOD COUNT 8.5 K/uL (4.8-10.8)
[2018-07-31 13:23] LABS: ALB/GLOB RATIO 1.5 (1.0-2.1); ALBUMIN 4.7 g/dL (3.5-5.0); ALT/SGPT 125 U/L (21-72); AST/SGOT 43 U/L (17-59); BLOOD UREA NITROGEN 12 mg/dl (9-20); CALCIUM 9.9 mg/dL (8.4-10.2); GFR NON-AFRICAN AMERICAN > 60
[2018-07-31 14:12] VITALS: BP 120/78; PULSE 92; RESP 18; TEMP 98
--- NOTE | 2018-07-31 15:27 | RAD ---
Date of service: 07/31/2018 HISTORY: inpatient COMPARISON: 07/29/2018. TECHNIQUE: Chest PA and lateral FINDINGS: LUNGS: No active pulmonary disease. PLEURA: No significant pleural effusion identified. No pneumothorax apparent. CARDIOVASCULAR: No aortic atherosclerotic calcification present. Normal cardiac size. No pulmonary vascular congestion. OSSEOUS STRUCTURES: No significant abnormalities. VISUALIZED UPPER ABDOMEN: Normal. OTHER FINDINGS: Stable appearance/position and orientation of SUPERINTENDENT POWER shunt catheter as visualized. IMPRESSION: No active disease. No significant interval change compared to the prior examination(s).
--- NOTE | 2018-07-31 21:07 | CARD ---
APPROVED REPORT Date of service: 07/31/2018 EKG Measurement Heart [id number] <Conclusion> Normal sinus rhythm Normal ECG
== END 2018-07-31 14:12 | disposition home or self-care (01) ==
LOC: H.ER 10:30
DX: G47.00 Insomnia, unspecified (principal); F20.9 Schizophrenia, unspecified; F31.9 Bipolar disorder, unspecified; F41.9 Anxiety disorder, unspecified

== ENCOUNTER 2018-08-31 15:48 | Emergency (ER) | payer OTHER ==
[2018-08-31 15:48] VITALS: BMI 30.9
[2018-08-31 15:58] VITALS: RESP 18; TEMP 98.4; O2SAT 100
[2018-08-31] MEDS ORDERED: Sodium Chloride 0.9% 1,000 ML IV STA (16:02)
[2018-08-31] MEDS ORDERED: Alum-Mag Hydrox-Simethicone Susp (30 mL) PO STA (16:10)
--- NOTE | 2018-08-31 16:19 | ED PDOC ---
HPI: Abdomen Time Seen by Provider: 08/31/18 16:14 Chief Complaint (Nursing): Abdominal Pain Chief Complaint (Provider): abdominal pain History Per: Patient (27 y/o male here for evaluation of epigastric abdominal pain ongoing 1 year daily. Patient has h/o schizophrenia on risperidol. States he consumed a bone years ago and is concerned for bone still in abdomen causing symptoms. Does not take any medications for symptoms.) Past Medical History Reviewed: Historical Data, Nursing Documentation, Vital Signs Vital Signs: Last Vital Signs Temp 98.4 F 08/31/18 15:56 Pulse 73 08/31/18 15:56 Resp 18 08/31/18 15:56 BP 103/69 08/31/18 15:56 Pulse Ox 100 08/31/18 15:56 - Medical History PMH: Anxiety, Bipolar Disorder, Depression, Gastritis, Schizophrenia Denies: Diabetes, Hepatitis, HIV, HTN, Seizures, Sexually Transmitted Disease - Family History Family History: States: Unknown Family Hx - Immunization History Hx Tetanus Toxoid Vaccination: No Hx Influenza Vaccination: No Hx Pneumococcal Vaccination: No - Home Medications Home Medications: Ambulatory Orders Medication Instructions Recorded Benztropine [Cogentin] 1 mg PO HS #30 tab 07/26/18 Trazodone HCl 150 mg PO HS #30 tablet 07/26/18 risperiDONE [RisperDAL Tab] 4 mg PO HS #60 tab 07/26/18 QUEtiapine [SEROquel] 50 mg PO HS #3 tab 07/29/18 Famotidine [Pepcid] 20 mg PO BID #10 tab 08/31/18 - Allergies Allergies/Adverse Reactions: Allergies Allergy/AdvReac Type Severity Reaction Status Date / Time No Known Allergies Allergy Unverified 08/31/18 15:56 Review of Systems ROS Statement: Except As Marked, All Systems Reviewed And Found Negative Gastrointestinal: Positive for: Abdominal Pain Physical Exam - Reviewed Nursing Documentation Reviewed: Yes Vital Signs Reviewed: Yes - Physical Exam Appears: Positive for: Well, Non-toxic, No Acute Distress Head Exam: Positive for: ATRAUMATIC, NORMAL INSPECTION, NORMOCEPHALIC Skin: Positive for: Normal Color, Warm, DRY Eye Exam: Positive for: EOMI, Normal appearance, PERRL ENT: Positive for: Normal ENT Inspection Neck: Positive for: Normal, Painless ROM Cardiovascular/Chest: Positive for: Regular Rate, Rhythm Respiratory: Positive for: CNT, Normal Breath Sounds Gastrointestinal/Abdominal: Positive for: Normal Exam, Soft, Tenderness (epigastric tenderness) Back: Positive for: Normal Inspection Extremity: Positive for: Normal ROM Neurological/Psych: Positive for: Awake, Alert, Normal Tone - Laboratory Results Result Diagrams: 08/31/18 16:56 08/31/18 16:56 - ECG O2 Sat by Pulse Oximetry: 100 - Progress ED Course And Treament: Xry of abdomen: FINDINGS: BOWEL: Normal bowel gas pattern. Mild retained feces. Ventriculoperitoneal shunt catheter noted. No hepatic or splenic enlargement. No masses or abnormal calcifications. BONES: Normal. OTHER FINDINGS: None. IMPRESSION: The P showing catheter. Disposition - Clinical Impression Clinical Impression: Abdominal pain - Patient ED Disposition Is Patient to be Admitted: Transfer of Care - Disposition Referrals: Jer Blue MD [Staff Provider] - Disposition: Transfer of Care Disposition Time: 19:55 Condition: FAIR Prescriptions: Famotidine [Pepcid] 20 mg PO BID #10 tab Patient Signed Over To: Emerson Lopez Handoff Comments: PENDING US REPORT
[2018-08-31] MEDS ORDERED: Alum-Mag Hydrox-Simethicone Susp (30 mL) ONE (16:44)
--- NOTE | 2018-08-31 16:51 | RAD ---
Date of service: 08/31/2018 HISTORY: foreign body in abdomen COMPARISON: None available. TECHNIQUE: 1 view obtained. FINDINGS: BOWEL: Normal bowel gas pattern. Mild retained feces. Ventriculoperitoneal shunt catheter noted. No hepatic or splenic enlargement. No masses or abnormal calcifications. BONES: Normal. OTHER FINDINGS: None. IMPRESSION: The P showing catheter.
[2018-08-31 17:01] LABS: BASO % 0.3 % (0.0-2.0); EOS # 0.2 K/uL (0.0-0.7); EOS % 2.5 % (0.0-4.0); HEMOGLOBIN 15.1 g/dL (12.0-18.0); LYMPH # 1.9 K/uL (1.0-4.3); LYMPH % 25.6 % (20.0-40.0); MEAN CELL VOLUME 89.2 fl (80.0-94.0); MEAN CORPUSCULAR HEMOGLOBIN 30.3 pg (27.0-31.0); MEAN PLATELET VOLUME 8.9 fl (7.2-11.7); MONO # 0.5 K/uL (0.0-0.8); MONO % 7.4 % (0.0-10.0); NEUT # 4.7 K/uL (1.8-7.0); NEUT % 64.2 % (50.0-75.0); RBC 4.97 Mil/uL (4.40-5.90); RED CELL DISTRIBUTION WIDTH 13.5 % (11.5-14.5); WHITE BLOOD COUNT 7.3 K/uL (4.8-10.8)
[2018-08-31 17:10] LABS: ALB/GLOB RATIO 1.5 (1.0-2.1); ALBUMIN 4.4 g/dL (3.5-5.0); ALT/SGPT 316 U/L (21-72); AST/SGOT 177 U/L (17-59); BLOOD UREA NITROGEN 13 mg/dl (9-20); CALCIUM 9.3 mg/dL (8.4-10.2); GFR NON-AFRICAN AMERICAN > 60; LIPASE 166 U/L (23-300)
[2018-08-31 18:56] LABS: SQUAMOUS EPITHIAL < 1 /hpf (0-5); URINE BACTERIA RARE (<OCC); URINE BILIRUBIN NEGATIVE (NEGATIVE); URINE BLOOD NEGATIVE (NEGATIVE); URINE COLOR YELLOW (YELLOW); URINE GLUCOSE (UA) 50 mg/dL (NEGATIVE); URINE LEUKOCYTE ESTERASE NEG Leu/uL (Negative); URINE PROTEIN NEGATIVE (NEGATIVE); URINE UROBILINOGEN 0.2-1.0 mg/dL (0.2-1.0)
[2018-08-31 19:51] LABS: URINE CLARITY CLEAR (Clear)
--- NOTE | 2018-08-31 20:29 | ED PDOC ---
- Laboratory Results Result Diagrams: 08/31/18 16:56 08/31/18 16:56 Lab Results: Total Bilirubin 0.7 mg/dl (0.2-1.3) 08/31/18 16:56 AST 177 U/L (17-59) H D 08/31/18 16:56 ALT 316 U/L (21-72) H D 08/31/18 16:56 Alkaline Phosphatase 122 U/L (38-126) 08/31/18 16:56 Total Protein 7.4 G/DL (6.3-8.2) 08/31/18 16:56 Albumin 4.4 g/dL (3.5-5.0) 08/31/18 16:56 Globulin 3.0 gm/dL (2.2-3.9) 08/31/18 16:56 Albumin/Globulin Ratio 1.5 (1.0-2.1) 08/31/18 16:56 Lipase 166 U/L (23-300) 08/31/18 16:56 Urine Color Yellow (YELLOW) 08/31/18 18:49 Urine Clarity Clear (Clear) 08/31/18 18:49 Urine pH 7.0 (5.0-8.0) 08/31/18 18:49 Ur Specific [place] 1.011 (1.003-1.030) 08/31/18 18:49 Urine Protein Negative mg/dL (NEGATIVE) 08/31/18 18:49 Urine Glucose (UA) 50 mg/dL (NEGATIVE) 08/31/18 18:49 Urine Ketones Negative mg/dL (NEGATIVE) 08/31/18 18:49 Urine Blood Negative (NEGATIVE) 08/31/18 18:49 Urine Nitrate Negative (NEGATIVE) 08/31/18 18:49 Urine Bilirubin Negative (NEGATIVE) 08/31/18 18:49 Urine Urobilinogen 0.2-1.0 mg/dL (0.2-1.0) 08/31/18 18:49 Ur Leukocyte Esterase Neg [place]/uL (Negative) 08/31/18 18:49 Urine RBC (Auto) 1 /hpf (0-3) 08/31/18 18:49 Urine Microscopic WBC < 1 /hpf (0-5) 08/31/18 18:49 Ur Squamous Epith Cells < 1 /hpf (0-5) 08/31/18 18:49 Urine Bacteria Rare (<OCC) 08/31/18 18:49 - ECG O2 Sat by Pulse Oximetry: 100 Medical Decision Making Medical Decision Makin case endorsed from Je Pagan PAC, pending US results due to elevated LFTs and dispo EXAM: US Abdomen, Right Upper Quadrant. CLINICAL HISTORY: Epigastric pain/ elevated LFTs TECHNIQUE: Right upper quadrant sonography performed with image documentation. COMPARISON: None provided. FINDINGS: LIVER: Within normal limits in size. There is increased echogenicity noted compatible with steatosis. No mass. GALLBLADDER: The gallbladder appears within normal limits. No gallbladder wall thickening or pericholecystic fluid. COMMON BILE DUCT: Within normal limits in size. normal transverse caliber measuring 2.7 mm. PANCREAS: The visualized pancreas appears within normal limits. The distal pancreas is obscured by bowel gas. RIGHT KIDNEY: Unremarkable. Normal renal contours. No renal mass or calculus. No hydronephrosis. IMPRESSION: 1. Evidence of hepatic steatosis. 2. The tail of the pancreas was obscured by bowel gas. Electronically signed on Aug 31, 2018 8:33:01 PM EDT by: Cong Menjivar M.D., IVONNE Certified By [facility] Trained MRI and CT Specialist [id number] US report back , evidence of hepatic steatosis, elevated AST and ALT, otherwise labs wnl pt seen by me, pt reports improved pain, abdomen is soft and non tender, pain for 1 year daily, likely reflux used language line [id number] to discuss results, diagnosis, treatment, return precautions and f/u with pt who is understanding, in agreement and stable for dc Disposition - Clinical Impression Clinical Impression: Abdominal pain, Reflux gastritis, Hepatic steatosis - POA Present On Arrival: None - Disposition Referrals: Jer Blue MD [Staff Provider] - Disposition: Routine/Home Disposition Time: 21:15 Condition: IMPROVED Additional Instructions: Kenny por dejarnos cuidar de ti hoy. Usted fue tratado por reflujo. La atencin mdica de emergencia que recibi hoy se dirigi a slava sntomas agudos. Si le recetaron algn medicamento, llnelo y tmelo segn las indicaciones. Yung un seguimiento con la clnica o el especialista en IG segn se indica. Los sntomas pueden tardar varios eisenberg en resolverse. Regrese al Departamento de Emergencias si slava sntomas empeoran, no mejoran o si tiene otros problemas. Comunquese con church mdico dentro de 2 eisenberg para rivera nueva evaluacin y yung un seguimiento o llame a bhavana de los mdicos / clnicas a los que cano sido referido y que figuran en el formulario de Informacin de visita al paciente que se incluye en church paquete de zandra. Lleve todos los documentos que recibi al momento del zandra junto con los medicamentos que est tomando para church visita de seguimiento. Nuestro tratamiento no puede reemplazar la atencin mdica continua por parte de un proveedor de atencin primaria (PCP) fuera del departamento de emergencias. Prescriptions: Famotidine [Pepcid] 20 mg PO BID #10 tab Instructions: Gastritis, Acid Reflux (Gastroesophageal Reflux Disease), Adult (DC) Forms: [employer] (Nicaraguan) Print Language: LAO
[2018-08-31 21:52] VITALS: BP 140/72; PULSE 60
--- NOTE | 2018-09-01 09:10 | US ---
Date of service: 08/31/2018 HISTORY: EPIGASTRIC PAIN/ELEVATED LFTS COMPARISON: None. TECHNIQUE: Sonographic evaluation of the right upper quadrant of the abdomen. FINDINGS: LIVER: Measures 15.4 cm in length. Increased echogenicity of the liver parenchyma. No mass. No intrahepatic bile duct dilatation. Main portal vein demonstrates normal directional flow. GALLBLADDER: Unremarkable. No gallstones. COMMON BILE DUCT: Measures 3 mm. No stones. No dilatation. PANCREAS: Limited evaluation due to overlying bowel gas. RIGHT KIDNEY: Measures 10.2 x 6.1 x 4.6 cm in length. Normal echogenicity. No calculus, mass, or hydronephrosis. AORTA: No aneurysmal dilatation. IVC: Limited evaluation due to overlying bowel gas. OTHER FINDINGS: None . IMPRESSION: Hepatic steatosis. Limited evaluation of the pancreas and IVC due to overlying bowel gas.
== END 2018-08-31 21:30 | disposition home or self-care (01) ==
LOC: H.ER 15:48
DX: R10.13 Epigastric pain (principal); K76.0 Fatty (change of) liver, not elsewhere classified; K29.60 Other gastritis without bleeding; Z86.59 Personal history of other mental and behavioral disorders

== ENCOUNTER 2018-09-17 00:17 | Emergency (ER) | payer SELFPAY ==
[2018-09-17 00:17] VITALS: BMI 30.9
[2018-09-17 01:00] VITALS: O2SAT 98
[2018-09-17] MEDS ORDERED: Alum-Mag Hydrox-Simethicone Susp (30 mL) PO STA (01:34)
[2018-09-17] MEDS ORDERED: Atrop/Hyos/Scop/PhenoB Elixir PO STA (01:35)
[2018-09-17] MEDS ORDERED: Sodium Chloride 0.9% 1,000 ML IV STA (01:36)
--- NOTE | 2018-09-17 01:42 | ED PDOC ---
HPI: Abdomen Time Seen by Provider: 09/17/18 00:57 Chief Complaint (Nursing): Abdominal Pain Chief Complaint (Provider): abd pain History Per: Patient History/Exam Limitations: no limitations Onset/Duration Of Symptoms: Days Outside of [place] travel?: No Current Symptoms Are (Timing): Still Present Severity: Mild Pain Scale Rating Of: 4 Location Of Pain/Discomfort: RUQ, Epigastric, LUQ Quality Of Discomfort: "Pain" Associated Symptoms: Nausea. denies: Fever, Chills, Vomiting, Diarrhea, Loss Of Appetite Exacerbating Factors: None Additional History Per: Patient Additional Complaint(s): 27 y/o male brought into the ed c/o epigastric pain for 2 years worse in last few days.a Patient states pain rad to right flank and right shoulder. He says pain is intermittent started after he swallowed a bone two years ago. He also states he feels pain in his throat. Patient denies fever, vomiting, diarrhea, poor appetite, chest pain, shortness of breath. Past Medical History Reviewed: Historical Data, Nursing Documentation, Vital Signs Vital Signs: Last Vital Signs Temp 9.6 F L 09/17/18 00:57 Pulse 82 09/17/18 00:57 Resp 16 09/17/18 00:57 BP 123/97 H 09/17/18 00:57 Pulse Ox 98 09/17/18 00:57 - Medical History PMH: Anxiety, Bipolar Disorder, Depression, Gastritis, Schizophrenia Denies: Diabetes, Hepatitis, HIV, HTN, Chronic Kidney Disease, Seizures, Sexually Transmitted Disease - Surgical History Surgical History: No Surg Hx - Family History Family History: States: Unknown Family Hx - Social History Alcohol: None Drugs: Denies - Immunization History Hx Tetanus Toxoid Vaccination: No Hx Influenza Vaccination: No Hx Pneumococcal Vaccination: No - Home Medications Home Medications: Ambulatory Orders Medication Instructions Recorded Benztropine [Cogentin] 1 mg PO HS #30 tab 07/26/18 Trazodone HCl 150 mg PO HS #30 tablet 07/26/18 risperiDONE [RisperDAL Tab] 4 mg PO HS #60 tab 07/26/18 QUEtiapine [SEROquel] 50 mg PO HS #3 tab 07/29/18 Famotidine [Pepcid] 20 mg PO BID #10 tab 08/31/18 Ibuprofen [Motrin] 600 mg PO Q6H PRN #30 tab 09/17/18 - Allergies Allergies/Adverse Reactions: Allergies Allergy/AdvReac Type Severity Reaction Status Date / Time No Known Allergies Allergy Unverified 08/31/18 15:56 Review of Systems ROS Statement: Except As Marked, All Systems Reviewed And Found Negative Constitutional: Negative for: Fever, Chills, Sweats, Weakness, Malaise Eyes: Negative for: Pain ENT: Positive for: Throat Pain. Negative for: Ear Pain, Ear Discharge, Nose Pain, Nose Discharge, Mouth Swelling, Throat Swelling Cardiovascular: Negative for: Chest Pain, Palpitations Respiratory: Negative for: Cough, Shortness of Breath, SOB with Exertion Gastrointestinal: Positive for: Nausea, Abdominal Pain. Negative for: Vomiting, Diarrhea, Constipation, Melena Genitourinary Male: Negative for: Dysuria Musculoskeletal: Positive for: Shoulder Pain (intermittent right shoulder pain) Skin: Negative for: Rash Physical Exam - Reviewed Nursing Documentation Reviewed: Yes Vital Signs Reviewed: Yes - Physical Exam Appears: Positive for: Well, Non-toxic, No Acute Distress Head Exam: Positive for: ATRAUMATIC, NORMAL INSPECTION, NORMOCEPHALIC Skin: Positive for: Normal Color, Warm, DRY Eye Exam: Positive for: EOMI, Normal appearance, PERRL ENT: Positive for: Normal ENT Inspection Neck: Positive for: Normal, Painless ROM Cardiovascular/Chest: Positive for: Regular Rate, Rhythm Respiratory: Positive for: CNT, Normal Breath Sounds Gastrointestinal/Abdominal: Positive for: Normal Exam, Bowel Sounds, Soft. Negative for: Tenderness, Distended Back: Positive for: Normal Inspection Extremity: Positive for: Normal ROM Neurological/Psych: Positive for: Awake, Alert, Normal Tone, Oriented - Laboratory Results Result Diagrams: 09/17/18 02:35 09/17/18 02:35 - ECG O2 Sat by Pulse Oximetry: 98 Medical Decision Making Medical Decision Making: --cbc --cmp --lipase --0.9 ns --gi cocktail --US abd --reassess patient was seen for same on 08/31/2018. xray was negative for foreign body. Patient given referral to GI and pepcid. Patient has not followed up. 04:24: labs reviewed by me, unremarkable, ALT:145. otherwise blood work unremarkable. Pending US report. Patient sleeping, resting comfortably, no distress or indication of pain. 05:35: US IMPRESSION: --HEPATOMEGALY AND HEPATIC STEATOSIS --CONTRACTED GALL BLADDER WITHOUT CHOLETHIASIS OR CHOLECYSTITIS. CLINICAL FINDINGS DISCUSSED WITH PATIENT. PATIENT STABLE FOR D/C. IMPRESSION: ABD PAIN. RX GIVEN FOR MOTRIN AND PEPCID PO. FOLLOW-UP WITH PMD. GIVEN RETURN TO ED PRECAUTIONS. Disposition - Clinical Impression Clinical Impression: Abdominal discomfort - Patient ED Disposition Is Patient to be Admitted: No Counseled Patient/Family Regarding: Diagnosis, Rx Given - Disposition Disposition: Routine/Home Disposition Time: 05:35 Condition: GOOD Prescriptions: Ibuprofen [Motrin] 600 mg PO Q6H PRN #30 tab PRN Reason: Pain, Moderate (4-7) Instructions: Acute Abdomen (Belly Pain) Print Language: AUSTRALIAN - POA Present On Arrival: None
[2018-09-17] MEDS ORDERED: Alum-Mag Hydrox-Simethicone Susp (30 mL) ONE (02:28)
[2018-09-17 03:00] LABS: BASO % 0.5 % (0.0-2.0); EOS # 0.2 K/uL (0.0-0.7); EOS % 2.6 % (0.0-4.0); HEMOGLOBIN 15.4 g/dL (12.0-18.0); LYMPH # 2.9 K/uL (1.0-4.3); LYMPH % 32.5 % (20.0-40.0); MEAN CELL VOLUME 88.6 fl (80.0-94.0); MEAN CORPUSCULAR HEMOGLOBIN 29.9 pg (27.0-31.0); MEAN CORPUSCULAR HGB CONC 33.7 g/dL (33.0-37.0); MEAN PLATELET VOLUME 9.5 fl (7.2-11.7); MONO # 0.7 K/uL (0.0-0.8); NEUT # 5.1 K/uL (1.8-7.0); NEUT % 56.4 % (50.0-75.0); NRBC % 0.1 % (0.0-0.0); RBC 5.16 Mil/uL (4.40-5.90); RED CELL DISTRIBUTION WIDTH 13.6 % (11.5-14.5)
[2018-09-17 03:05] LABS: ALB/GLOB RATIO 1.5 (1.0-2.1); ALBUMIN 4.5 g/dL (3.5-5.0); ALT/SGPT 145 U/L (21-72); AST/SGOT 39 U/L (17-59); BLOOD UREA NITROGEN 18 mg/dl (9-20); CALCIUM 9.6 mg/dL (8.4-10.2); GFR NON-AFRICAN AMERICAN > 60; LIPASE 208 U/L (23-300)
[2018-09-17 03:05] LABS: URINE AMORPHOUS SEDIMENT RARE /ul (<OCC); URINE BACTERIA RARE (<OCC); URINE BILIRUBIN NEGATIVE (NEGATIVE); URINE BLOOD NEGATIVE (NEGATIVE); URINE CLARITY CLOUDY (Clear); URINE COLOR YELLOW (YELLOW); URINE GLUCOSE (UA) 150 mg/dL (NEGATIVE); URINE LEUKOCYTE ESTERASE NEG Leu/uL (Negative); URINE PROTEIN NEGATIVE (NEGATIVE)
[2018-09-17 05:55] VITALS: BP 119/85; PULSE 78; RESP 18; TEMP 98.4
--- NOTE | 2018-09-17 11:31 | US ---
Date of service: 09/17/2018 HISTORY: epigastric/ ruq pain COMPARISON: 08/31/2018. Abdominal ultrasound. TECHNIQUE: Sonographic evaluation of the right upper quadrant of the abdomen. FINDINGS: LIVER: Measures cm in length. Normal echogenicity of the liver parenchyma. No mass. No intrahepatic bile duct dilatation. GALLBLADDER: Contracted gallbladder, consistent with postprandial state. Gallstones are not identified. COMMON BILE DUCT: Measures 3.3 mm. No stones. No dilatation. PANCREAS: Obscured by overlying bowel gas. Non diagnostic assessment of the pancreas. RIGHT KIDNEY: Measures 4.9 x 11.5 cm in length. Normal echogenicity. No calculus, mass, or hydronephrosis. AORTA: No aneurysmal dilatation. IVC: Unremarkable. OTHER FINDINGS: None . IMPRESSION: No acute or significant findings related to/ accounting for the clinical presentation. Additional benign and/or incidental findings described above. No significant interval change compared to the prior examination(s). Limitations of the current examination: Nondiagnostic study of the pancreas.
== END 2018-09-17 05:50 | disposition home or self-care (01) ==
LOC: H.ER 00:17
DX: R10.13 Epigastric pain (principal)
CPT/HCPCS: 76705; 80053; 81003; 83690; 85025; 96361; 96374; 99283; J2405; J7030

== ENCOUNTER 2018-09-20 18:01 | Emergency (ER) | payer SELFPAY ==
[2018-09-20 18:01] VITALS: BMI 30.9
[2018-09-20 18:23] VITALS: RESP 18
[2018-09-20] MEDS ORDERED: Sodium Chloride 0.9% 1,000 ML IV STA (18:41)
--- NOTE | 2018-09-20 18:50 | ED PDOC ---
HPI: Abdomen Time Seen by Provider: 09/20/18 18:30 Chief Complaint (Nursing): Abdominal Pain Chief Complaint (Provider): Abd pain History Per: Patient History/Exam Limitations: no limitations Onset/Duration Of Symptoms: Days (7 years) Additional Complaint(s): Pt. with abd pain, headaches off and on mild, dizziness like light-headed. Nausea, no vomit. No chest pain, weakness, dyspnea, diarrhea, dysuria. 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 States more symptoms for 5 days. Headache is not the worst in his life. No numbness, tingles, weakness, neck pain. Past Medical History Reviewed: Nursing Documentation, Vital Signs Vital Signs: Last Vital Signs Temp 98.6 F 09/20/18 18:20 Pulse 91 H 09/20/18 18:20 Resp 18 09/20/18 18:20 BP 115/79 09/20/18 18:20 Pulse Ox 98 09/20/18 18:20 Primary Care Provider: Doctor,Conversion - Medical History PMH: Anxiety, Bipolar Disorder, Depression, Gastritis, Schizophrenia Denies: Diabetes, Hepatitis, HIV, HTN, Chronic Kidney Disease, Seizures, Sexually Transmitted Disease - Surgical History Surgical History: No Surg Hx - Family History Family History: States: Unknown Family Hx - Social History Alcohol: None Drugs: Denies - Immunization History Hx Tetanus Toxoid Vaccination: No Hx Influenza Vaccination: No Hx Pneumococcal Vaccination: No - Home Medications Home Medications: Ambulatory Orders Medication Instructions Recorded Benztropine [Cogentin] 1 mg PO HS #30 tab 07/26/18 Trazodone HCl 150 mg PO HS #30 tablet 07/26/18 risperiDONE [RisperDAL Tab] 4 mg PO HS #60 tab 07/26/18 QUEtiapine [SEROquel] 50 mg PO HS #3 tab 07/29/18 Famotidine [Pepcid] 20 mg PO BID #10 tab 08/31/18 Ibuprofen [Motrin] 600 mg PO Q6H PRN #30 tab 09/17/18 Famotidine [Pepcid] 20 mg PO DAILY PRN #6 tab 09/20/18 Ibuprofen [Motrin] 600 mg PO TID 7 Days tab 09/20/18 - Allergies Allergies/Adverse Reactions: Allergies Allergy/AdvReac Type Severity Reaction Status Date / Time No Known Allergies Allergy Unverified 09/20/18 18:20 Review of Systems ROS Statement: Except As Marked, All Systems Reviewed And Found Negative Cardiovascular: Positive for: Light Headedness Gastrointestinal: Positive for: Abdominal Pain Musculoskeletal: Negative for: Neck Pain Neurological: Positive for: Headache, Dizziness Physical Exam - Reviewed Nursing Documentation Reviewed: Yes Vital Signs Reviewed: Yes - Physical Exam Appears: Positive for: Non-toxic, No Acute Distress Head Exam: Positive for: ATRAUMATIC, NORMAL INSPECTION, NORMOCEPHALIC Skin: Positive for: Normal Color, Warm, DRY Eye Exam: Positive for: EOMI, Normal appearance, PERRL ENT: Positive for: Normal ENT Inspection Neck: Positive for: Normal, Painless ROM, Supple, Trachea Midline Cardiovascular/Chest: Positive for: Regular Rate, Rhythm Respiratory: Positive for: CNT, Normal Breath Sounds Gastrointestinal/Abdominal: Positive for: Normal Exam, Soft, Tenderness (mild diffuse) Back: Positive for: Normal Inspection. Negative for: L CVA Tenderness, R CVA Tenderness Extremity: Positive for: Normal ROM. Negative for: Tenderness, Pedal Edema Neurological/Psych: Positive for: Awake, Alert, Normal Tone, associate software developer II-XII. Negative for: Motor/Sensory Deficits - Laboratory Results Result Diagrams: 09/20/18 19:00 09/20/18 19:00 Interpretation Of Abn Labs: no acute - ECG ECG: Positive for: Interpreted By Me, Viewed By Me ECG Rhythm: Positive for: Normal QRS, Normal ST Segment, Sinus Rhythm O2 Sat by Pulse Oximetry: 98 Pulse Ox Interpretation: Normal - Radiology X-Ray: Interpreted by Me, Viewed By Me X-Ray Interpretation: No Acute Disease - CT Scan/US ct Other Rad Studies (CT/US): Read By Radiologist Other Rad Interpretation: no acute - Progress ED Course And Treament: 2243: Stable. AAOx3. Pain free. Tolerated PO. FU with pcp. Disposition - Clinical Impression Clinical Impression: Abdominal pain, Dizziness Counseled Patient/Family Regarding: Studies Performed, Diagnosis, Need For Followup, Rx Given - Disposition Referrals: [facility] [Outside] - 09/24/18 Disposition: Routine/Home Disposition Time: 22:44 Condition: STABLE Additional Instructions: Return if not better in 3 days. Prescriptions: Famotidine [Pepcid] 20 mg PO DAILY PRN #6 tab PRN Reason: Pain Ibuprofen [Motrin] 600 mg PO TID 7 Days tab Instructions: Dizziness, Nonvertigo, (DC), Stomach Ache and Stomach Upset Print Language: SAMMARINESE
[2018-09-20 19:22] LABS: BASO % 0.7 % (0.0-2.0); EOS # 0.1 K/uL (0.0-0.7); EOS % 1.4 % (0.0-4.0); HEMOGLOBIN 16.2 g/dL (12.0-18.0); LYMPH # 1.8 K/uL (1.0-4.3); LYMPH % 25.7 % (20.0-40.0); MEAN CELL VOLUME 89.9 fl (80.0-94.0); MEAN CORPUSCULAR HEMOGLOBIN 30.5 pg (27.0-31.0); MONO # 0.4 K/uL (0.0-0.8); MONO % 6.5 % (0.0-10.0); NEUT # 4.5 K/uL (1.8-7.0); NEUT % 65.7 % (50.0-75.0); NRBC % 0.2 % (0.0-0.0); RBC 5.29 Mil/uL (4.40-5.90); RED CELL DISTRIBUTION WIDTH 13.7 % (11.5-14.5); WHITE BLOOD COUNT 6.9 K/uL (4.8-10.8)
[2018-09-20 19:27] LABS: INR 1.1; PROTHROMBIN TIME 12.3 Seconds (9.8-13.1)
[2018-09-20 19:29] LABS: PARTIAL THROMBOPLASTIN TIME 37.7 Seconds (25.6-37.1)
[2018-09-20] MEDS ORDERED: Iohexol 300 100 ML IJ ONE (19:42)
[2018-09-20] MEDS ORDERED: Sodium Chloride 0.9% 0 ML IV ONE (19:42)
[2018-09-20 19:43] LABS: ALB/GLOB RATIO 1.5 (1.0-2.1); ALBUMIN 4.7 g/dL (3.5-5.0); ALT/SGPT 96 U/L (21-72); AST/SGOT 37 U/L (17-59); BLOOD UREA NITROGEN 10 mg/dl (9-20); CALCIUM 9.3 mg/dL (8.4-10.2); GFR NON-AFRICAN AMERICAN > 60; LIPASE 164 U/L (23-300)
--- NOTE | 2018-09-20 21:55 | RAD ---
Date of service: 09/20/2018 HISTORY: Chest pain COMPARISON: 07/31/2018. FINDINGS: LUNGS: No active pulmonary disease. PLEURA: No significant pleural effusion identified, no pneumothorax apparent. CARDIOVASCULAR: No atherosclerotic calcification present Normal. OSSEOUS STRUCTURES: No significant abnormalities. VISUALIZED UPPER ABDOMEN: Normal. 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 IMPRESSION: No active disease. No significant interval change compared to the prior examination(s).
[2018-09-20 22:37] VITALS: BP 139/91; PULSE 80; TEMP 98.5
[2018-09-20 22:44] VITALS: O2SAT 98
--- NOTE | 2018-09-21 09:30 | CARD ---
APPROVED REPORT Date of service: 09/20/2018 EKG Measurement Heart [id number] <Conclusion> Normal sinus rhythm Normal ECG
--- NOTE | 2018-09-21 10:20 | CT ---
Date of service: 09/20/2018 PROCEDURE: CT HEAD WITHOUT CONTRAST. HISTORY: headache COMPARISON: None available. TECHNIQUE: Axial computed tomography images were obtained through the head/brain without intravenous contrast. Radiation dose: Total exam DLP = 829.37 mGy-cm. This CT exam was performed using one or more of the following dose reduction techniques: Automated exposure control, adjustment of the mA and/or kV according to patient size, and/or use of iterative reconstruction technique. FINDINGS: HEMORRHAGE: No intracranial hemorrhage. BRAIN: There is a large CSF density lesion at the right anterior and middle cranial extra-axial space exerting mass effect on the right cerebral hemisphere with midline leftward shift of less than 1 cm identified. It measures 4.1 x 10.2 x 11.7 cm (transverse by anteroposterior by superoinferior dimensions) no septation or nodularity definitively associated. Likely represents a large arachnoid cyst. It does not communicate with the right lateral ventricle and is therefore felt not to reflect open lip schizencephaly. Patient status post right parietal soo hole with shunt catheter identified terminating within the medial margins of this collection. Right lateral ventricle appears mildly effaced. No parenchymal edema is appreciate with good corticomedullary differentiation appreciated throughout the brain. The right temporal lobe and right frontal lobe appear mildly atrophic indicating the chronicity of this large likely arachnoid cyst. VENTRICLES: No hydrocephalus. Additional details above. CALVARIUM: Right parietal soo hole for shunt catheter. PARANASAL SINUSES: Unremarkable as visualized. No significant inflammatory changes. MASTOID AIR CELLS: Unremarkable as visualized. No inflammatory changes. OTHER FINDINGS: None. IMPRESSION: Large right fronto temporal arachnoid cysts identified exerting mass effect at the right anterior and mid cerebral parenchyma partially effaces the right lateral ventricle with less than 1 cm midline shift evident. An apparent shunt is identified at the medial margins of this collection by a right parietal soo hole. Differential diagnosis would be a meningocele air but dermoid not completely excluded. MRI can be utilized for added characterization to exclude epidermoid. Comparison a prior brain imaging is recommended with none currently available at our institution.
--- NOTE | 2018-09-21 10:54 | CT ---
Date of service: 09/20/2018 PROCEDURE: CT Abdomen and Pelvis without intravenous contrast HISTORY: R/O stone COMPARISON: Limited abdomen ultrasound 09/17/2018. TECHNIQUE: Helical CT of the abdomen and pelvis was performed without oral or intravenous contrast as per referring physician request. Coronal and sagittal reformats were generated. Radiation dose: Total exam DLP = 511.61 mGy-cm. This CT exam was performed using one or more of the following dose reduction techniques: Automated exposure control, adjustment of the mA and/or kV according to patient size, and/or use of iterative reconstruction technique. FINDINGS: LOWER THORAX: Unremarkable. LIVER: Unremarkable. No gross lesion or ductal dilatation. GALLBLADDER AND BILE DUCTS: Unremarkable. PANCREAS: Unremarkable. No gross lesion or ductal dilatation. SPLEEN: Unremarkable. ADRENALS: Unremarkable. No mass. KIDNEYS AND URETERS: No radiodense urolithiasis, perinephric fluid collection or obstructive uropathy is appreciate bilaterally. The bilateral ureters appear normal caliber overall. No suspicious renal contour changes to suggest underlying mass. The lack of intravenous contrast limits evaluation of the renal parenchyma bilaterally. VASCULATURE: Unremarkable. No aortic aneurysm. No aortic atherosclerotic calcification or mural plaque present. BOWEL: Unremarkable. No obstruction. No gross mural thickening. APPENDIX: Unremarkable. Normal appendix. PERITONEUM: Trace fluid is identified in the pelvis, potentially related to ventriculoperitoneal shunt placement with catheter identified within the peritoneal space terminating at the left lower quadrant. LYMPH NODES: Shotty pericecal and central mesenteric lymph nodes may indicate mesenteric adenitis. Clinically correlate further. BLADDER: Radiodense urolithiasis or marked mural thickening appreciable. No pericystic reactive change. REPRODUCTIVE: Unremarkable. BONES: No acute fracture. OTHER FINDINGS: None. IMPRESSION: No radiodense urolithiasis, perinephric fluid collection or obstructive uropathy is appreciate bilaterally. The bilateral ureters appear normal caliber overall. No suspicious renal contour changes to suggest underlying mass. The lack of intravenous contrast limits evaluation of the renal parenchyma bilaterally. Possible mesenteric adenitis. Clinically correlate further. Preliminary report provided by Celia, 09/20/2018, 10:15 p.m..
== END 2018-09-20 23:05 | disposition home or self-care (01) ==
LOC: H.ER 18:01
DX: R10.9 Unspecified abdominal pain (principal); R42 Dizziness and giddiness; Z86.59 Personal history of other mental and behavioral disorders
CPT/HCPCS: 70450; 71045; 74176; 80053; 83690; 84484; 85025; 85610; 85730; 93005; 96361; 96374; 96375; 99283; J1885; J2405; J7030